=== PATIENT | male | born 1985 ===

== ENCOUNTER 2018-03-25 19:24 | Emergency (ER) | payer SELFPAY ==
[2018-03-25 19:32] VITALS: BP 159/95; PULSE 84; TEMP 98.3; O2SAT 98
[2018-03-25] MEDS ORDERED: Sodium Chloride 0.9% Inh Soln (3mL) UD INH ONE (19:55)
--- NOTE | 2018-03-25 19:57 | C.PDOC ---
History Of Present Illness 33 y/o male c/o cough with white sputum, sore throat, body aches and subjective fever for a few days. Taking Dayquil at home, no sick contacts, no recent travel. +nasal congestion HPI: Influenza Time Seen by Provider: 03/25/18 19:36 Chief Complaint: ENT Problem History Per: Patient Exam Limitations: no limitations Have you had recent travel within the past 21 days to any of the following countries: [place], [place], [place] or [place]?: No Onset/Duration Of Symptoms: Days (3) Symptoms include: fever (subjective), bodyaches, sore throat, cough. denies: vomiting, diarrhea, chest pain, difficulty breathing, blurry vision Sick Contacts (Context): None Hx Influenza Vaccination: No Risk factors for flu complications: No: adult > 65 years, chronic lung disease Past Medical History Reviewed: Historical Data, Nursing Documentation, Vital Signs Vital Signs: Last Vital Signs Temp 98.3 F 03/25/18 19:28 Pulse 84 03/25/18 19:28 Resp 16 03/25/18 19:28 BP 159/95 H 03/25/18 19:28 Pulse Ox 98 03/25/18 19:28 - Medical History PMH: No Chronic Diseases Family History: States: Unknown Family Hx - Social History Hx Tobacco Use: No Hx Alcohol Use: No Hx Substance Use: No - Immunization History Hx Tetanus Toxoid Vaccination: No Hx Influenza Vaccination: No Hx Pneumococcal Vaccination: No Review Of Systems Constitutional: Positive for: Fever (subjecktive) ENT: Positive for: Nose Discharge, Throat Pain. Negative for: Ear Pain Cardiovascular: Negative for: Chest Pain Respiratory: Positive for: Cough, Sputum (white). Negative for: Shortness of Breath Gastrointestinal: Negative for: Vomiting, Abdominal Pain Skin: Negative for: Rash Neurological: Negative for: Weakness, Numbness Physical Exam - Physical Exam Appears: Non-toxic, No Acute Distress Skin: Warm, Dry Head: Atraumatic, Normacephalic Eye(s): bilateral: Normal Inspection Ear(s): Bilateral: Normal Nose: No Discharge Oral Mucosa: Moist Throat: Erythema, No Exudate Neck: Supple Lymphatic: No Adenopathy Chest: No Deformity, No Tenderness Cardiovascular: Rhythm Regular, No Murmur Respiratory: No Decreased Breath Sounds, No Rales, No Rhonchi, No Wheezing Gastrointestinal/Abdominal: Bowel Sounds, Soft, No Tenderness Neurological/Psych: Oriented x3, Normal Speech, Normal Cognition Medical Decision Making Medical Decision Making: pt with uri sympotms, non toxic appear, afebrile. rapid strep neg. pt with elevated bp at triage, no hx elevated bp. repeated in ed , 170/90. pt is asymptomatic; no cp, sob, headache, dizzines. visual changes. pt advised to f/u in medical clinic tomorrow for repeat bp check. - ECG O2 Sat by Pulse Oximetry: 98 Disposition Counseled Patient/Family Regarding: Studies Performed, Diagnosis, Need For Followup - Disposition Disposition: HOME/ ROUTINE Disposition Time: 20:55 Condition: GOOD Additional Instructions: [place] Tylenol cada 4-6 horas para la fiebre o el dolor. Giovanna lquidos en exceso, t, agua, mantngase javid hidratado. Evite los productos lcteos por unos parsons. Mayor descanso. Realice un seguimiento en la clnica mdica y realice fernanda revisin de la presin arterial desde que se encontraba en la sivakumar de emergencias. [facility] Tessalon Perles para la tos. Dejar de william dayquil Please take Tylenol every 4-6 hours for fever or pain. Drink increased fluids- tea, water, Stay well hydrated. Avoid dairy products for a few days. Increased rest. Follow up in medical clinictomorrow for blood pressure check since it was high in the Emergency Room. Take Tessalon Perles for cough. stop taking dayquil Prescriptions: Benzonatate [Tessalon Perle] 100 mg PO TID #9 capsule Instructions: Viral Upper Respiratory Infection, Adult (DC) Forms: Gen Discharge Inst [place], Lumafit (Irish), Lumafit ([place]ican), Work Excuse Print Language: FRENCH - Clinical Impression Clinical Impression: Upper respiratory infection
[2018-03-25] MEDS ORDERED: Sodium Chloride 0.9% 20 ML IV ONE (20:06)
[2018-03-25 21:31] VITALS: RESP 20
== END 2018-03-25 21:31 | disposition home or self-care (01) ==
LOC: C.ER 19:24
DX: J06.9 Acute upper respiratory infection, unspecified (principal)